=== PATIENT | female | born 1995 | race Hispanic/Latino ===

== ENCOUNTER 2016-10-25 23:28 | Emergency (ER) | payer SELFPAY ==
[~2016-10-25] VITALS: Ht 157.5 cm; Wt 69.6 kg
[2016-10-26 01:51] LABS: HEMATOCRIT 46.2 % (36.0-46.0); MCH 27.4 PG (29.0-34.0); MCHC 33.3 G/DL (30.0-36.0); MCV 82.1 FL (83-99); RBC DIS.WIDTH-CV 12.6 % (11.8-14.6); RBC DIS.WIDTH-SD 37.7 % (39-53); RED BLOOD COUNT 5.63 M/uL (3.80-5.20); WHITE BLOOD COUNT 12.5 K/uL (4.1-10.2)
[2016-10-26 02:01] LABS: CHLORIDE 106 mEq/L (99-109); POTASSIUM 4.3 mEq/L (3.7-5.4); SODIUM 138 mEq/L (136-147)
[2016-10-26 02:03] LABS: GLUCOSE 114 mg/dL (70-99)
[2016-10-26 02:04] LABS: ANION GAP 7 MEQ/L (2-14)
[2016-10-26 02:06] LABS: GFR ESTIMATE (CALCULATED) > 59 mL/min/
[2016-10-26 02:07] LABS: UREA NITROGEN (BUN) 12 mg/dL (9-23)
[2016-10-26 02:14] LABS: QUANTITATIVE HCG < 4.0 MIU/ML
[2016-10-26 02:42] LABS: ADD MIUA? NO; BILIRUBIN NEGATIVE; BLOOD NEGATIVE; COLOR STRAW ((YELLOW)); GLUCOSE (STRIP) NEGATIVE; KETONES NEGATIVE; LEUKOCYTES NEGATIVE; NITRITE NEGATIVE; PROTEIN (STRIP) NEGATIVE; SPECIFIC GRAVITY 1.005 (1.000-1.030); UCUL ADDED? NO; UROBILINOGEN 0.2 MG/DL (0.2-1.0)
[2016-10-26] MEDS ORDERED: FIORICET 50-301 EACH PO (03:44)
[2016-10-26] MEDS ORDERED: REGLAN10 MG PO (03:44)
[2016-10-26 04:40] VITALS: BP 127/81
[2016-10-26 05:39] LABS: PLATELET CLUMPS PRESENT - PLATELET COUNT APPEARS ADQ.; PLATELET COUNT UNABLE TO REPORT K/uL (156-360)
== END 2016-10-26 04:46 | disposition home or self-care (01) ==
LOC: EME 23:28
PROVIDERS: Physician Assistant
DX: R51 Headache (principal); R20.0 Anesthesia of skin; H53.149 Visual discomfort, unspecified; R11.2 Nausea with vomiting, unspecified; J02.9 Acute pharyngitis, unspecified
CPT/HCPCS: 70450; 70486; 80048; 81003; 84702; 85027; 99281; 99284; J1100; J1200; J1885; J2765; J7030